=== PATIENT | male | born 1975 | race Caucasian/White ===

== ENCOUNTER 2018-06-01 15:56 | Emergency (ER) | payer SELFPAY ==
[~2018-06-01] VITALS: Ht 162.6 cm; Wt 70.4 kg
[2018-06-01 16:15] VITALS: TEMP 37; Ht 162.6 cm; Wt 70.4 kg
[2018-06-01 18:18] LABS: ALBUMIN 4.1 gm/dl (3.4-5.0); CALCIUM 8.9 mg/dl (8.5-10.1); CREATININE 0.89 mg/dl (0.60-1.40); POTASSIUM 4.4 mmol/L (3.5-5.1); TOTAL PROTEIN 7.8 gm/dl (6.4-8.2)
[2018-06-01 18:22] LABS: BASO % 0.3 %; BASO ABS # 0.03 K/uL (0-0.2); EOS % 0.2 %; EOS ABS # 0.02 K/uL (0-0.5); HEMOGLOBIN 14.3 g/dL (14.0-18.0); IG# 0.01 K/uL (0.00-0.02); LYMPH % 26.6 %; MEAN CELL VOLUME 91.3 fL (80-100); MEAN CORPUSCULAR HEMOGLOBIN 31.1 pg (25-34); MONO % 9.8 %; MONO ABS # 0.85 K/uL (0.11-0.59); NEUT ABS # 5.45 K/uL (1.4-6.5); PLATELET COUNT 254 K/uL (130-400); RED CELL DISTRIBUTION WIDTH CV 13.1 % (11.5-14.5); RED CELL DISTRIBUTION WIDTH SD 43.5 fL (36.4-46.3); WHITE BLOOD COUNT 8.66 K/uL (4.8-10.8)
--- NOTE | 2018-06-01 18:43 | DIAGNOSTIC IMAGING REPORT ---
CERVICAL SPINE 5 VIEWS HISTORY: L arm numbness, radiculopathy COMPARISON: None. FINDINGS: The cervical spine is visualized from C1 through C7. There is no fracture. No subluxation. Disc spaces are preserved. Prevertebral soft tissues and the atlantodens interval are intact. Straightening of the cervical spine. IMPRESSION: No fracture or subluxation within the cervical spine. No significant degenerative disc disease. Straightening of the cervical spine. Electronically signed by: Julio Okeefe M.D. 06/01/2018 6:42 PM Dictated Date/Time: 06/01/2018 6:39 PM
--- NOTE | 2018-06-01 18:47 | DIAGNOSTIC IMAGING REPORT ---
CHEST 2 VIEWS ROUTINE HISTORY: L CHEST PAIN, pleuritic pain COMPARISON: None. FINDINGS: The lungs are clear. Cardiac silhouette is normal in size. No pleural effusions. No pneumothorax. Old, healed left lateral ninth rib fracture. No acute rib fractures. IMPRESSION: No acute process. Electronically signed by: Julio Okeefe M.D. 06/01/2018 6:46 PM Dictated Date/Time: 06/01/2018 6:43 PM
[2018-06-01 19:11] VITALS: BP 137/99; PULSE 60; O2SAT 99
--- NOTE | 2018-06-01 21:18 | EMERGENCY ROOM VISIT NOTE ---
History Report prepared by Fabio: Rebekah Faith Under the Supervision of: Dr. Janeth Pham M.D. First contact with patient: 17:14 Chief Complaint: BACK PAIN Stated Complaint: LOWER BACK PAIN;RIB NUMBNESS History of Present Illness The patient is a 42 year old male who presents to the Emergency Room with complaints of worsening lower back pain starting a few months ago. 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 He states that he has left rib pain, left shoulder pain, left side of neck, and has numbness from his left elbow to his hand. He states that his legs intermittently go numb. He reports that he came to the ED today because the numbness in his left arm made him nervous. He states that he assumed that the pain would go away on its own, but it hasn't. He notes that he has tried taking Aleve with no relief. He notes that it seems to be worse when he is sedentary. The patient complains of joint pain and pain with deep breathing. The patient denies fever. He denies injuring his neck. Source of History: patient Onset: a few months ago Position: back (lower) Timing: worsening Modifying Factors (Worsening): rest Associated Symptoms: + neck pain, + numbness, No fevers Note: The patient complains of left rib pain, left shoulder pain, joint pain, and pain with deep breathing. Review of Systems See HPI for pertinent positives & negatives. A total of 10 systems reviewed and were otherwise negative. Past Medical & Surgical No significant past medical history. Family History FHx: suicide Social History Smoking Status: Current Every Day Smoker Alcohol Use: occasionally Marital Status: single Housing Status: lives alone Occupation Status: employed Allergies Coded Allergies: No Known Allergies (Verified , 06/01/18) Physical Exam Vital Signs Date Time Temp Pulse Resp B/P (MAP) Pulse Ox O2 Delivery O2 Flow Rate FiO2 06/01/18 19:11 60 18 137/99 99 06/01/18 18:41 54 06/01/18 18:35 56 16 156/95 98 Room Air 06/01/18 16:15 37.0 66 18 166/90 100 Room Air Physical Exam Vital signs reviewed. General: Well-appearing, in no significant distress. Sitting up at the bedside , declining to change into the gown. HEENT: No scleral icterus, PERRLA, neck supple. Atraumatic. Mild tenderness to palpation over the proximal cervical spine. Cardiovascular: Regular rate and rhythm, no extra sounds. Pulmonary: Clear to auscultation bilaterally, normal work of breathing. Abdomen: Soft, nontender, nondistended, positive bowel sounds. Musculoskeletal: Atraumatic, no peripheral edema. Tenderness to palpation over the left latissimus. Pain with deep inspiration to left chest wall. Discomfort to the left shoulder with ROM. Pain with pronation, extension and downward pressure of left shoulder. Mild tenderness to palpation over the proximal cervical spine. Neurologic: Patient awake alert and oriented x 3, full strength in all 4 extremities. Skin: Warm, dry, no rash Medical Decision & Procedures ER Provider Diagnostic Interpretation: Radiology results as stated below per my review and radiologist interpretation: CHEST 2 VIEWS ROUTINE HISTORY: L CHEST PAIN, pleuritic pain COMPARISON: None. FINDINGS: The lungs are clear. Cardiac silhouette is normal in size. No pleural effusions. No pneumothorax. Old, healed left lateral ninth rib fracture. No acute rib fractures. IMPRESSION: No acute process. Electronically signed by: Julio Okeefe M.D. 06/01/2018 6:46 PM Dictated Date/Time: 06/01/2018 6:43 PM CERVICAL SPINE 5 VIEWS HISTORY: L arm numbness, radiculopathy COMPARISON: None. FINDINGS: The cervical spine is visualized from C1 through C7. There is no fracture. No subluxation. Disc spaces are preserved. Prevertebral soft tissues and the atlantodens interval are intact. Straightening of the cervical spine. IMPRESSION: No fracture or subluxation within the cervical spine. No significant degenerative disc disease. Straightening of the cervical spine. Electronically signed by: Julio Okeefe M.D. 06/01/2018 6:42 PM Dictated Date/Time: 06/01/2018 6:39 PM Laboratory Results 06/01/18 17:45 Red Blood Count 4.60, Mean Corpuscular Volume 91.3, Mean Corpuscular Hemoglobin 31.1, Mean Corpuscular Hemoglobin Concent 34.0, Mean Platelet Volume 10.0, Neutrophils (%) (Auto) 63.0, Lymphocytes (%) (Auto) 26.6, Monocytes (%) (Auto) 9.8, Eosinophils (%) (Auto) 0.2, Basophils (%) (Auto) 0.3, Neutrophils # (Auto) 5.45, Lymphocytes # (Auto) 2.30, Monocytes # (Auto) 0.85, Eosinophils # (Auto) 0.02, Basophils # (Auto) 0.03 06/01/18 17:45 Test 06/01/18 17:45 White Blood Count 8.66 K/uL (4.8-10.8) Red Blood Count 4.60 M/uL (4.7-6.1) Hemoglobin 14.3 g/dL (14.0-18.0) Hematocrit 42.0 % (42-52) Mean Corpuscular Volume 91.3 fL (80-100) Mean Corpuscular Hemoglobin 31.1 pg (25-34) Mean Corpuscular Hemoglobin Concent 34.0 g/dl (32-36) Platelet Count 254 K/uL (130-400) Mean Platelet Volume 10.0 fL (7.4-10.4) Neutrophils (%) (Auto) 63.0 % Lymphocytes (%) (Auto) 26.6 % Monocytes (%) (Auto) 9.8 % Eosinophils (%) (Auto) 0.2 % Basophils (%) (Auto) 0.3 % Neutrophils # (Auto) 5.45 K/uL (1.4-6.5) Lymphocytes # (Auto) 2.30 K/uL (1.2-3.4) Monocytes # (Auto) 0.85 K/uL (0.11-0.59) Eosinophils # (Auto) 0.02 K/uL (0-0.5) Basophils # (Auto) 0.03 K/uL (0-0.2) RDW Standard Deviation 43.5 fL (36.4-46.3) RDW Coefficient of Variation 13.1 % (11.5-14.5) Immature Granulocyte % (Auto) 0.1 % Immature Granulocyte # (Auto) 0.01 K/uL (0.00-0.02) D-Dimer 230 ug/L FEU (0-500) Urine Color YELLOW Urine Appearance CLEAR (CLEAR) Urine pH 6.5 (4.5-7.5) Urine Specific [place] 1.012 (1.000-1.030) Urine Protein NEG (NEG) Urine Glucose (UA) NEG (NEG) Urine Ketones NEG (NEG) Urine Occult Blood NEG (NEG) Urine Nitrite NEG (NEG) Urine Bilirubin NEG (NEG) Urine Urobilinogen NEG (NEG) Urine Leukocyte Esterase NEG (NEG) Anion Gap 7.0 mmol/L (3-11) Est Creatinine Clear Calc Drug Dose 89.7 ml/min Estimated GFR () 121.4 Estimated GFR (Non- 104.7 BUN/Creatinine Ratio 9.8 (10-20) Calcium Level 8.9 mg/dl (8.5-10.1) Total Bilirubin 0.5 mg/dl (0.2-1) Direct Bilirubin 0.2 mg/dl (0-0.2) Aspartate Amino Transf (AST/SGOT) 27 U/L (15-37) Alanine Aminotransferase (ALT/SGPT) 40 U/L (12-78) Alkaline Phosphatase 17 U/L (45-117) Total Protein 7.8 gm/dl (6.4-8.2) Albumin 4.1 gm/dl (3.4-5.0) Urine Opiates Screen NEG (NEG) Urine Methadone, Qualitative NEG (NEG) Urine Barbiturates NEG (NEG) Urine Phencyclidine (PCP) Level NEG (NEG) Ur Amphetamine/Methamphetamine NEG (NEG) MDMA (Ecstasy) Screen NEG (NEG) Urine Benzodiazepines Screen NEG (NEG) Urine Cocaine Metabolite NEG (NEG) Urine Marijuana (THC) POS (NEG) Lyme Disease IgG Antibody NEG (NEG) Lyme Disease IgM Antibody NEG (NEG) Laboratory results per my review. ED Course 1727: Past medical records reviewed. The patient was evaluated in room C3. A complete history and physical examination was performed. 1906: Upon reevaluation, the patient appeared to have improvement of his symptoms. I discussed findings with him. He verbalized agreement of the treatment plan. The patient was discharged home. Medical Decision Differential diagnosis: Etiologies such as fracture, dislocation, neurovascular compromise, compartment syndrome, soft tissue injury, as well as others were entertained. This pt was evaluated and appeared to be in no distress. Lab work was obtained and reveals no elevation of WBC, neg d-dimer, neg lyme titer. XR cervical spine and chest were performed. There is no acute abnl, no significant degenerative change of cervical spine. CXR is clear. Pt was advised of the findings. I suspect the left arm symptoms are radicular in nature. The arthralgias and shoulder discomfort are likely MSK in nature. Pt's employment is physical in nature and the heavy lifting is likely the cause of the pain. The symptoms have been ongoing for many months-years. He was referred to a PCP as soon as possible as well as orthopedics regarding the MSK pain. He will return to the ED for worsening of symptoms or any medical concerns. [place] Drug Monitoring Program Search Results: no issues identified Medication Reconcilliation Current Medication List: was personally reviewed by me Blood Pressure Screening Patient's blood pressure: Elevated blood pressure Blood pressure disposition: Elevated BP felt to be situational Impression Primary Impression: Radicular pain in left arm Additional Impressions: Arthralgia of back Shoulder pain, left Strain of latissimus dorsi muscle Scribe Attestation The scribe's documentation has been prepared under my direction and personally reviewed by me in its entirety. I confirm that the note above accurately reflects all work, treatment, procedures, and medical decision making performed by me. Departure Information Dispostion Home / Self-Care Referrals No Doctor, Assigned (PCP) Forms HOME CARE DOCUMENTATION FORM, IMPORTANT VISIT INFORMATION Patient Instructions My [facility] Additional Instructions Diagnosis: Left arm radiculopathy, arthralgias Ibuprofen 600 mg every 6 hours as needed for pain with food. Avoid heavy lifting or trauma if possible. Your Lyme titer is pending, you will be contacted if this is positive. Follow-up with orthopedics, Dr. Finney for reevaluation and further management. Return to the emergency department for worsening of symptoms or any medical concerns. Problem Qualifiers
== END 2018-06-01 19:06 | disposition home or self-care (01) ==
LOC: C.EDB 15:57 → C.EDC 19:06
DX: M54.10 Radiculopathy, site unspecified (principal); M54.5 Low back pain; M25.512 Pain in left shoulder; S46.812A Strain of other muscles, fascia and tendons at shoulder and upper arm level, left arm, initial encounter; X58.XXXA Exposure to other specified factors, initial encounter; F17.200 Nicotine dependence, unspecified, uncomplicated

== ENCOUNTER 2018-06-16 13:13 | Emergency (ER) | payer SELFPAY ==
[~2018-06-16] VITALS: Ht 162.6 cm; Wt 71.7 kg
[2018-06-16 13:21] VITALS: BP 146/98; PULSE 83; TEMP 37.1; O2SAT 98; Ht 162.6 cm; Wt 71.7 kg
[2018-06-16] MEDS ORDERED: AMOX875T PO (13:39)
--- NOTE | 2018-06-16 13:39 | EMERGENCY ROOM VISIT NOTE ---
History Report prepared by Fabio: Rebekah Faith Under the Supervision of: Dr. Liam Olea M.D. First contact with patient: 13:29 Chief Complaint: FACIAL PAIN/INJURY Stated Complaint: LEFT SIDE OF FACE SWELLED UP History of Present Illness The patient is a 42 year old male who presents to the Emergency Room with complaints of worsening left sided facial pain starting last night. The patient states that states that the pain is located over his left maxillary sinus. He notes that is is swelling with the pain. He states that he took two Aleve last night with no relief. He currently rates his pain as moderate severity. The patient complains of being able to sleep due to the pain. He denies fevers, sneezing, or neck stiffness. Source of History: patient Onset: last night Position: other (left face) Symptom Intensity: 1010 Quality: other (swelling) Timing: worsening Associated Symptoms: + headache Note: The patient complains of not being able to sleep. Review of Systems See HPI for pertinent positives and negatives. A total of ten systems were reviewed and were otherwise negative. Past Medical & Surgical No known medical problems. Family History FHx: suicide Social History Smoking Status: Current Every Day Smoker Alcohol Use: occasionally Marital Status: single Housing Status: lives alone Occupation Status: employed Current/Historical Medications Scheduled Amoxicillin & Pot Clavulanate (Augmentin 875-125 mg), 875 MG PO BID Allergies Coded Allergies: No Known Allergies (Verified , 06/01/18) Physical Exam Vital Signs Date Time Temp Pulse Resp B/P (MAP) Pulse Ox O2 Delivery O2 Flow Rate FiO2 06/16/18 13:21 37.1 83 18 146/98 98 Room Air Physical Exam Physical Exam GENERAL: He is oriented to person, place, and time. He appears well-developed and well-nourished. He does not appear distressed. HENT: Exam performed. Head: Normocephalic and atraumatic. No facial swelling. Right Ear: External ear normal. No mastoid tenderness. Left Ear: External ear normal. No mastoid tenderness. Mouth/Throat: The oropharynx is clear and moist. Poor dentition. Multiple cracked teeth. Multiple dental caries. Multiple missing teeth. Pain to percussion of his left upper molar that reproduced the chief complaint. Pain on palpation of the left maxillary sinus reproducing the chief complaint. No trismus in the jaw. No dental abscesses or uvula swelling. No oropharyngeal exudate or tonsillar abscesses. EYES: Conjunctivae and EOM are normal. Pupils are equal, round, and reactive to light. Right eye exhibits no discharge. Left eye exhibits no discharge. No scleral icterus. NECK: Normal range of motion. Neck supple. No JVD present. No spinous process tenderness present. No carotid bruit present. No rigidity. No tracheal deviation and normal range of motion present. No Brudzinski's sign and no Kernig 's sign noted. CV: Normal rate, regular rhythm, normal heart sounds and intact distal pulses. There is no peripheral edema. Palpable radial pulses bue. PULM/CHEST: Effort normal and breath sounds normal. No respiratory distress. No stridor. He has no wheezes. He has no rales. Chest Wall: He exhibits no tenderness. ABD: The abdomen is soft. Bowel sounds are normal. He has no distension. No mass is present. There is no tenderness. There is no rebound, no guarding, no Evans's sign and no tenderness at McBurney's point. Rovsig negative. MUSC/SKEL: Normal range of motion. There is no peripheral edema, tenderness or deformity. LYMPH: No cervical adenopathy. NEURO: He is alert and oriented to person, place, and time. He has normal strength. No cranial nerve deficit or sensory deficit. Coordination and gait normal. GCS eye subscore is 4. GCS verbal subscore is 5. GCS motor subscore is 6. Cerebellar tests wnl. SKIN: Skin is warm and dry. He is not diaphoretic. PSYCH: He has a normal mood and affect. Behavior is normal. Judgment and thought content normal. Medical Decision & Procedures ED Course 1330: The patient was evaluated in room B8. A complete history and physical exam was performed. Patient has no signs or symptoms consistent with cavernous sinus thrombosis, orbital cellulitis, or acute surgical emergency. No fever, extraocular movements are intact, no significant facial swelling. Patient will be discharged with antibiotics. It is thought that the poor dentition could be a source of the infection that the patient should follow-up with dentistry. DISCHARGE - Plan of care discussed with patient and questions answered. The patient was given both verbal and printed discharge instructions. The patient verbalized understanding and ability to comply. The patient is to seek outpatient follow up as noted in the discharge instructions. The patient verbalized understanding and ability to comply. The patient is discharged in stable condition. The patient was instructed to return for worsening symptoms. Medical Decision The patient was evaluated in room B8. A complete history and physical exam was performed. Patient has no signs or symptoms consistent with cavernous sinus thrombosis, orbital cellulitis, or acute surgical emergency. No fever, extraocular movements are intact, no significant facial swelling. Patient will be discharged with antibiotics. It is thought that the poor dentition could be a source of the infection that the patient should follow-up with dentistry. DISCHARGE - Plan of care discussed with patient and questions answered. The patient was given both verbal and printed discharge instructions. The patient verbalized understanding and ability to comply. The patient is to seek outpatient follow up as noted in the discharge instructions. The patient verbalized understanding and ability to comply. The patient is discharged in stable condition. The patient was instructed to return for worsening symptoms. Medication Reconcilliation Current Medication List: was personally reviewed by me Blood Pressure Screening Patient's blood pressure: Elevated blood pressure Blood pressure disposition: Elevated BP felt to be situational Impression Primary Impression: Sinus infection Scribe Attestation The scribe's documentation has been prepared under my direction and personally reviewed by me in its entirety. I confirm that the note above accurately reflects all work, treatment, procedures, and medical decision making performed by me. The chart was completed utilizing [employer] Speech voice recognition software. Grammatical errors, random word insertions, pronoun errors, and incomplete sentences are an occasional consequence of this system due to software limitations, ambient noise, and hardware issues. Any formal questions or concerns about the content, text, or information contained within the body of this dictation should be directly addressed to the physician for clarification. Departure Information Dispostion Home / Self-Care Prescriptions Amoxicillin & Pot Clavulanate (Augmentin 875-125 mg) 1 Tab Tab 875 MG PO BID for 10 Days, #20 TAB Prov: Liam Olea M.D. 06/16/18 Referrals No Doctor, Assigned (PCP) Forms HOME CARE DOCUMENTATION FORM, IMPORTANT VISIT INFORMATION Patient Instructions [facility] Problem Qualifiers Primary Impression: Sinus infection Sinusitis location: maxillary Chronicity: acute Recurrence: not specified as recurrent Qualified Codes: J01.00 - Acute maxillary sinusitis, unspecified
== END 2018-06-16 13:40 | disposition home or self-care (01) ==
LOC: C.EDB 13:14
DX: J01.00 Acute maxillary sinusitis, unspecified (principal); K08.89 Other specified disorders of teeth and supporting structures; K02.9 Dental caries, unspecified; F17.200 Nicotine dependence, unspecified, uncomplicated

== ENCOUNTER 2025-05-04 13:21 | Inpatient (IN) ==
[2025-05-04] MEDS: ONDANSETRON INJ 2 MG/ML 2 ML VIAL IV STA (14:06)
[2025-05-04] MEDS: MoRPHine SULFATE 2 MG/ML CARP IV STA ×2 (14:06→15:12)
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
[2025-05-04 14:18] LABS: Hematocrit (blood only) 41.0 % (42.0-52.0); Hemoglobin 13.6 g/dl (14.0-18.0); Immature Granulocytes # (auto) 0.13 K/uL (0.01-0.20); Immature Granulocytes % (auto) 0.7 %; Mean Corpuscular Hemoglobin 30.5 pg (25.0-34.0); Mean Corpuscular Volume 91.9 fL (80.0-100.0); Platelet Count 239 K/uL (130-400); RDW Standard Deviation 45.1 fL (36.4-46.3); Red Blood Count 4.46 M/uL (4.70-6.10); White Blood Count 17.47 K/ul (4.8-10.8)
[2025-05-04 14:36] LABS: Alanine Aminotransferase 52.0 U/L (7-52); Albumin Globulin Ratio 1.1 (0.9-2); Alkaline Phosphatase 19.0 U/L (34-104); Anion Gap 8.0 (3-11); Bilirubin,Total 0.4 mg/dl (0.2-1.0); Blood Urea Nitrogen 13.0 mg/dl (6-23); Calcium 9.7 mg/dl (8.6-10.3); Carbon Dioxide 27.0 mmol/L (21-32); Chloride 103.0 mmol/L (98-107); Creatinine Clr Calc Pharmacy 62.0 ml/min; Globulin 3.5 gm/dl (2.5-4.0); Glucose 155.0 mg/dl (70-99(Fasting)); Potassium 3.9 mmol/L (3.5-5.1); Sodium 138.0 mmol/L (136-145); Total Protein 7.5 gm/dl (6.0-8.3)
[2025-05-04] MEDS: LIDOCAINE 5% 1 PATCH TD STA (15:12)
--- NOTE | 2025-05-04 15:18 | Magnetic Resonance Report ---
MR lumbar spine wo con CLINICAL HISTORY: Back pain, urine incont, R leg numbness. COMPARISON: 02/12/2022 MRI and x-ray of 05/02/2025 TECHNIQUE: Multiplanar, multi sequence MRI of the lumbar spine was performed without intravenous cont rast. FINDINGS: There is motion artifact. Conus medullaris terminates normally at L1. No fracture or sublux ation seen at the lumbar spine. No epidural mass or hematoma seen. L1-2: No significant disc bulge or central canal or neural foraminal narrowing. L2-3: No significant disc bulge or central canal or neural foraminal narrowing. L3-4: There is a minimal disc bulge without significant central canal or neuroforaminal narrowing. L4-5: There is a mild broad-based disc bulge with mild ligamentum flavum and facet hypertrophy. No si gnificant central canal or neuroforaminal narrowing. L5-S1: No significant disc bulge. No significant central canal narrowing. No significant neural shayne inal narrowing. IMPRESSION: 1. No fracture seen. 2. Lumbar degenerative changes as described. ACT 112: Negative or not required by law. The above report was generated using voice recognition software. It may contain grammatical, syntax o r spelling errors. Electronically signed by: Conner Love M.D. 05/04/2025 3:16 PM
[2025-05-04] MEDS: KETOROLAC TROMETHAMINE 15 MG/ML VIAL IV ONE (16:10)
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
[2025-05-04] MEDS ORDERED: ONDANSETRON INJ 2 MG/ML 2 ML VIAL IV PRN (18:04)
[2025-05-04] MEDS ORDERED: DEXAMETHASONE SOD INJ 4 MG/ML VIAL IV SCH (18:04)
[2025-05-04] MEDS: dexAMETHasone 4 MG in SYRINGE 0 ML IV SCH (19:31)
[2025-05-04] MEDS: REMOVE LIDODERM PATCH SCH (20:23)
[2025-05-04] MEDS: ACETAMINOPHEN 500 MG TAB PO SCH (20:23)
[2025-05-04] MEDS: DOCUSATE SODIUM 100 MG CAP PO SCH (20:23)
[2025-05-04 20:41] LABS: Appearance Urine Clear (Clear); Glucose Urine UA Negative (Negative)
[2025-05-04] MEDS: MoRPHine SULFATE 4 MG/ML 1 ML CARP\\VIAL IV PRN (21:23)
[2025-05-05] MEDS: MELATONIN 3 MG TAB PO PRN (00:08)
[2025-05-05 07:16] LABS: Hematocrit (blood only) 39.6 % (42.0-52.0); Hemoglobin 13.0 g/dl (14.0-18.0); Immature Granulocytes # (auto) 0.10 K/uL (0.01-0.20); Immature Granulocytes % (auto) 0.7 %; Mean Corpuscular Hemoglobin 30.4 pg (25.0-34.0); Mean Corpuscular Volume 92.7 fL (80.0-100.0); Platelet Count 224 K/uL (130-400); RDW Standard Deviation 45.2 fL (36.4-46.3); Red Blood Count 4.27 M/uL (4.70-6.10); White Blood Count 14.67 K/ul (4.8-10.8)
[2025-05-05 07:40] LABS: Alanine Aminotransferase 46.0 U/L (7-52); Albumin Globulin Ratio 1.4 (0.9-2); Alkaline Phosphatase 16.0 U/L (34-104); Anion Gap 7.0 (3-11); Bilirubin,Total 0.5 mg/dl (0.2-1.0); Blood Urea Nitrogen 15.0 mg/dl (6-23); Calcium 8.9 mg/dl (8.6-10.3); Carbon Dioxide 28.0 mmol/L (21-32); Chloride 103.0 mmol/L (98-107); Creatinine Clr Calc Pharmacy 83.7 ml/min; Globulin 2.9 gm/dl (2.5-4.0); Glucose 127.0 mg/dl (70-99(Fasting)); Magnesium 1.9 mg/dl (1.7-2.4); Potassium 4.1 mmol/L (3.5-5.1); Sodium 138.0 mmol/L (136-145); Total Protein 6.9 gm/dl (6.0-8.3)
[2025-05-05 08:33] LABS: Hemoglobin A1C 5.5 % (4.5-5.6)
--- NOTE | 2025-05-05 08:44 | Consultation ---
Date of Consultation May 05, 2025 Assessment & Plan (1) Lumbar radiculopathy: Dr. Hudson will review imaging tomorrow. There are no acute surgical indications. There is no evidence on imaging to suggest cauda equina syndrome. Would recommend consultation with pain management team to discuss pain control as well as consideration of steroid injection. Would recommend physical therapy. History of Present Illness Attending Physician: Tyler Henning MD History of Present Illness Is a pleasant 49-year-old gentleman who presented to the emergency room twice this week once for 3 days ago and then yesterday with subsequent admission now. He has complaints of right lumbar pain range on the right leg including numbness in the right leg. There is no specific pattern. He is "the entire leg. Left leg is asymptomatic. No specific accident, trauma, fall. Pain medication he was taking at home was ineffective and relieving his symptoms. He notes 2 separate episodes of urinary incontinence. Denies perineum numbness. Denies any bowel dysfunction. Any type of weightbearing on the right lower extremity or movement reproduces his symptoms. He states he is has similar episodes in the past which she has just managed at home. Allergies Allergy/AdvReac Type Severity Reaction Status Date / Time No Known Allergies Allergy Unknown Verified 05/02/25 16:50 Home Medications Medication Instructions Recorded Confirmed Type prednisone 20 mg tablet 20 mg PO BID 5 days #10 tabs 05/02/25 05/04/25 Rx Patient History Medical History No chronic diseases present Surgical History No significant past surgical history Social History Smoking Status: Current some day smoker Tobacco Type: Cigarettes Hx Alcohol Use: Yes Alcohol type: beer Alcohol Intake Frequency: 2-4 x/Month Hx Substance Use: Yes Preferred Language: Bulgarian Communication Ability: Effective 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 Also has pain over the right greater trochanter bursa region. He has breakaway weakness throughout the entire right lower extremity Strength is intact to left lower extremity Logrolling reproduces back pain Results & Data Vital Signs (Past 12 Hours) Vital Signs Temp Pulse Resp BP Pulse Ox O2 Del Method 05/05/25 07:49 36.4 C L 84 16 104/70 99 Room Air 05/04/25 21:24 36.7 C 51 L 18 136/82 99 Room Air Diagnostic Findings [facility], [place] [phone] Magnetic Resonance Report Patient: JUAN DAVID CHAUDHARY II Admit Date: 05/04/25 MR#: [id number] Address1: [address] [place] [address] Acct ID:[id number] Address2: Date: 1975 [facility] Zip: [place] [address] Age: 49 Location: ED Sex: M Room/Bed: Att Phy: Diagnosis: BACK PAIN Karla Phy: PCP,NO Service Date: 05/04/25 Fam Phy: Interpreting Phy: Conner Love [facility] Phy: Ordering Phy: Sage Holguin PA-C cc: ~ MR lumbar spine wo con CLINICAL HISTORY: Back pain, urine incont, R leg numbness. COMPARISON: 02/12/2022 MRI and x-ray of 05/02/2025 TECHNIQUE: Multiplanar, multi sequence MRI of the lumbar spine was performed without intravenous contrast. FINDINGS: There is motion artifact. Conus medullaris terminates normally at L1. No fracture or subluxation seen at the lumbar spine. No epidural mass or hematoma seen. L1-2: No significant disc bulge or central canal or neural foraminal narrowing. L2-3: No significant disc bulge or central canal or neural foraminal narrowing. L3-4: There is a minimal disc bulge without significant central canal or neuroforaminal narrowing. L4-5: There is a mild broad-based disc bulge with mild ligamentum flavum and facet hypertrophy. No significant central canal or neuroforaminal narrowing. L5-S1: No significant disc bulge. No significant central canal narrowing. No significant neural foraminal narrowing. IMPRESSION: 1. No fracture seen. 2. Lumbar degenerative changes as described. ACT 112: Negative or not required by law. The above report was generated using voice recognition software. It may contain grammatical, syntax or spelling errors. Electronically signed by: Conner Love M.D. 05/04/2025 3:16 PM Dictated: 05/04/25 1506 Transcribed: 05/04/25 1506 [place], [place] [phone] XRay Report Patient: JUAN DAVID CHAUDHARY II Admit Date: 05/02/25 MR#: [id number] Address1: [address] [facility] Acct ID:[id number] Address2: Date: 1975 [facility] [place] [facility] [address] Age: 49 Location: ED Sex: M Room/Bed: Att Phy: Diagnosis: NECK AND LOWER BACK, LEG NUMB, PAIN Karla Phy: PCP,NO Service Date: 05/02/25 Fam Phy: Interpreting Phy: Iraj Martinez MDAdmit Phy: Ordering Phy: Shruthi Street PA-C cc: ~ Clinical history: Pain Technique: 3 views of the lumbar spine are submitted for review Findings: The lumbar vertebrae are in normal alignment with no listhesis seen. There are mild T10, T11, and T12 compression fractures, likely old. No definite lumbar spine fracture is identified. There are degenerative spurs throughout the lower thoracic and lumbar spine. No focal osseous lesion is seen. The bowel gas pattern appears unremarkable. Impression: 1. Mild compression fractures of T10, T11, and T12, likely old 2. Multilevel degenerative disc disease Electronically signed by Iraj Martinez 05-02-2025 6:06 PM Dictated: 05/02/25 3521 Transcribed:
[2025-05-05] MEDS: POLYETHYLENE (MIRALAX) 17 GM PACK PO SCH (09:25)
--- NOTE | 2025-05-05 14:59 | Hospitalist Progress Note ---
Date of Service May 05, 2025 Assessment & Plan (1) Lumbar back pain: (2) Sciatica of right side: Plan #Acute on Chronic low back pain with R sided radiculopathy #Urinary Incontinence - reported #Ambulatory dysfunction 2/2 above admitted to med/surg L spine MRI with L DDD, L4-5 mild disc buldge Pt reports crushing accident 3 years ago, known hx of T10-12 comp fx Pt pain uncontrolled and unable to tolerate further MRI until better controlled consult Dr. Hudson with orthospine for further imaging recs and eval scheduled APAP, lidocaine patch prn Oxy IR, Prn IV morphine IV dexamethasone 4mg q8h, Scheduled Valium 2mg TID, Heat bowel regimen ordered DVT ppx: SCDS for now FULL CODE PCP: none, pt wishes to establish with provider in mineral Admission and Anticipated Discharge Date Admission Date: May 04, 2025 Subjective Pt seen in follow up of back pain and RLE numbness Lying in bed in NAD, reports pain with any movement that involves right side back, RLE. Reports he had pain issues for some time/ months and was seen by pain physician before. No fever, chills, chest pain, shortness of breath, no abd.pain, n/v Review of Systems Review of Systems: All systems reviewed & are unremarkable except as noted in Subjective Physical Exam Physical Exam: Constitutional: WD/WN, M in NAD Head: Normocephalic, Atraumatic Eyes: PERRL, EOMI ENMT: external ear and nose normal Neck: normal visual inspection Respiratory: normal respiratory effort, lungs clear to auscultation Cardiovascular: RRR, no murmur, no edema Chest: normal inspection of chest Abdomen: normal bowel sounds, soft,nontender Musculoskeletal:+pain to palp R paraspinal musculature R lateral thigh with decreased sensation, +SLR, no foot drop but weakness to plantar/dorsiflexion of R foot Skin: no rashes, warm and dry normal turgor Neurologic: PERRL, EOMI, no face palsy, speech fluent, moves all extremities Psychiatric: A+Ox3, euthymic affect Results & Data Results & Data Vital Signs (Past 12 Hours) Vital Signs Temp Pulse Resp BP Pulse Ox O2 Del Method 05/05/25 07:49 36.4 C L 84 16 104/70 99 Room Air Laboratory Results 05/05/25 05/04/25 Range/Units 06:49 Unknown WBC 14.67 H (4.8-10.8) K/ul RBC 4.27 L (4.70-6.10) M/uL Hgb 13.0 L (14.0-18.0) g/dl Hct 39.6 L (42.0-52.0) % MCV 92.7 (80.0-100.0) fL MCH 30.4 (25.0-34.0) pg MCHC 32.8 (32.0-36.0) g/dL RDW Std Deviation 45.2 (36.4-46.3) fL RDW Coeff of Zeus 13.3 (11.5-14.5) % Plt Count 224 (130-400) K/uL MPV 10.9 (9.4-12.4) fL Immature Gran % (Auto) 0.7 % Neut % (Auto) 88.6 % Lymph % (Auto) 7.2 % [place] % (Auto) 3.4 % Eos % (Auto) 0.0 % Baso % (Auto) 0.1 % Neut # (Auto) 13.01 H (1.40-6.50) K/uL Lymph # (Auto) 1.05 L (1.20-3.40) K/uL [place] # (Auto) 0.50 (0.11-0.59) K/uL Eos # (Auto) 0.00 (0.00-0.50) K/uL Baso # (Auto) 0.01 (0.00-0.20) K/uL Immature Gran # (Auto) 0.10 (0.01-0.20) K/uL Sodium 138 (136-145) mmol/L Potassium 4.1 (3.5-5.1) mmol/L Chloride 103 (98-107) mmol/L Carbon Dioxide 28 (21-32) mmol/L Anion Gap 7 (3-11) BUN 15 (6-23) mg/dl Creatinine 0.85 (0.6-1.4) mg/dl Est Cr Clr Drug Dosing 83.7 ml/min eGFR 105.86 BUN/Creatinine Ratio 17.6 (10-20) Glucose 127 H (70-99(Fasting)) mg/dl Estimat Average Glucose 111 mg/dl Hemoglobin A1c 5.5 (4.5-5.6) % Calcium 8.9 (8.6-10.3) mg/dl Magnesium 1.9 (1.7-2.4) mg/dl Total Bilirubin 0.5 (0.2-1.0) mg/dl AST 32 (13-39) U/L ALT 46 (7-52) U/L Alkaline Phosphatase 16 L (34-104) U/L Total Protein 6.9 (6.0-8.3) gm/dl Albumin 4.0 (3.4-5.0) gm/dl Globulin 2.9 (2.5-4.0) gm/dl Albumin/Globulin Ratio 1.4 (0.9-2) Urine Color Yellow Urine Appearance Clear (Clear) Urine pH 7.0 (4.5-7.5) Ur Specific Anthony 1.011 (1.000-1.030) Urine Protein Negative (Negative) Urine Glucose (UA) Negative (Negative) Urine Ketones Negative (Negative) Urine Blood Negative (Negative) Urine Nitrite Negative (Negative) Urine Bilirubin Negative (Negative) Urine Urobilinogen Negative (Negative) Ur Leukocyte Esterase Negative (Negative) Urine Comment Medications Administered Home Medications prednisone 20 mg tablet 20 mg PO BID 5 days #10 tabs 05/02/25 [Rx Confirmed 05/04/25] Active Medications Acetaminophen (Acetaminophen 500 Mg Tab) 1,000 mg PO TID [facility] Stop: 06/03/25 20:59 Last Admin: 05/05/25 14:49 Dose: 1,000 mg Diazepam (Diazepam 2 Mg Tablet) 2 mg PO TID JON Stop: 06/03/25 20:59 Last Admin: 05/05/25 14:49 Dose: 2 mg Docusate Sodium (Docusate Sodium 100 Mg Cap) 100 mg PO BID JON Stop: 06/03/25 20:59 Last Admin: 05/05/25 09:26 Dose: 100 mg Dexamethasone 4 mg/ Syringe 1 mls @ 1 mls/min IV Q8H [facility] Stop: 06/03/25 18:14 Last Admin: 05/05/25 09:27 Dose: 1 mls/min Melatonin (Melatonin 3 Mg Tab) 3 mg PO HS PRN PRN Reason: Insomnia Stop: 06/03/25 18:03 Last Admin: 05/05/25 00:08 Dose: 3 mg Miscellaneous (Remove Lidoderm Patch) 1 each N/A DAILY@2100 [facility] Stop: 06/03/25 20:59 Last Admin: 05/04/25 20:23 Dose: 1 each Morphine Sulfate (Morphine Sulfate 4 Mg/Ml 1 Ml Carp\Vial) 4 mg IV Q4H PRN PRN Reason: Severe Pain (Scale 7, 8, 9,10) Stop: 05/18/25 18:03 Last Admin: 05/04/25 21:23 Dose: 4 mg Ondansetron HCl (Ondansetron Inj 2 Mg/Ml 2 Ml Vial) 4 mg IV Q6H PRN PRN Reason: Nausea Stop: 06/03/25 18:03 Oxycodone HCl (Oxycodone Hcl Ir 5 Mg Tab (Immediate Release)) 5 - 10 mg PO Q4H PRN PRN Reason: Mod-Sev Pain (Scale 4-10) Stop: 05/18/25 18:03 Last Admin: 05/05/25 14:11 Dose: 10 mg Polyethylene Glycol (Polyethylene (Miralax) 17 Gm Pack) 17 gm PO DAILY [facility] Stop: 06/04/25 08:59 Last Admin: 05/05/25 09:25 Dose: Not Given
--- NOTE | 2025-05-05 18:18 | Pain Management Consultation ---
Date of Consultation May 05, 2025 Assessment & Plan (1) Lumbar radiculopathy: (2) Myofascial pain syndrome of lumbar spine: Plan 1. Recommend discontinuing morphine sulfate and starting Dilaudid 1 mg IV every 6 hours as needed for pain. Will continue use oxycodone 5 to 10 mg every 4 hours for breakthrough pain. 2. Will start gabapentin 300 mg at bedtime tonight. Will also start duloxetine 30 mg every morning with first dose in the morning. If patient tolerates both these medications, can prescribe on discharge 3. Recommend obtaining records from Dr. [facility] as well as from [place] where patient had procedures performed 4. Implement increased bowel regimen with Colace 100 mg p.o. twice daily, senna 8.6 mg p.o. every morning, and polyethylene glycol every morning as needed. Titrate to bowel movement 5. Will implement lidocaine patch to be used 12 hours on 12 hours off and most painful area of lumbosacral region 6. Discontinue scheduled diazepam as gabapentin can cause increased drowsiness. No history of benzodiazepine use on PDMP 7. Agree with dexamethasone while inpatient. Would discharge on prednisone or Medrol taper 8. Increase ambulation in the hallway and as tolerated 9. MRI images reviewed. No significant change from lumbar spine MRI 02/12/2022. Patient may benefit from interlaminar or transforaminal epidural steroid injection. Will control pain and discharged home and if patient is interested, can follow him in the pain clinic for consideration of future injection. Thank you for including us in the care of this patient. Case discussed with Dr. Infante. Please see her addendum for further recommendations. History of Present Illness Attending Physician: Tyler Henning MD History of Present Illness Attending: Dr. Infante Mr. Schwab is a 49-year-old male. He was admitted for intractable right-sided lower back pain radiating right leg associated with some numbness in an L5-S1 distribution pattern as well as pain in the left leg to the mid thigh in an L3-L4 distribution pattern. Patient reports urinary incontinence which has been gradually worsening since many months. He denies bowel incontinence. He also reports having chronic cervical pain. He was admitted for management of lumbar radiculopathy, ambulatory dysfunction, and suspected cauda equina. Lumbar MRI showed no significant stenosis, no acute fractures but suggestive of degenerative changes with minimal disc bulge at L3-L4 and mild broad-based disc bulge at L4-L5. There is no significant central canal narrowing or neuroforaminal narrowing. There was evidence of ligamentum flavum and facet hypertrophy at L4-L5. 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 He reports that he was admitted for 1 week in trauma center. He reports no long bone fractures or significant lacerations but has had cervical and thoracolumbar since that time. Patient following with Worker's Comp with [facility] (Dr. Morales) until August 2024 with pain management clinic out of [facility]. He denies any history of lumbar or thoracic epidural steroid injections. He did however have multiple intercostal nerve blocks with his last procedure being performed in August 2024. Patient reports that pain worsened 2 months ago without injury. He has been having increased difficulty with ambulation around the home and has required help to go to the bathroom. He characterizes his pain as severe, constant, stabbing, sharp in the lumbosacral region. Pain interrupts his sleep and he cannot sleep on his right side. Over the last 2 to 3 weeks he has developed numbness in his right leg and foot as well as in his left anterior thigh. Pain is aggravated by bending, lifting, twisting, prolonged standing, prolonged walking. He denies any home medications and states that he has never used gabapentin, duloxetine, pregabalin, Lyrica. He has never had physical therapy, chiropractic initialization, massage. He reports that ice and heat do not help. He has been receiving morphine sulfate 4 mg IV as well as oxycodone 5 to 10 mg p.o. every 4 hours and reports 50% improvement for short period of time with return of pain every time he moves, tries to sit on the edge of the bed, tries to walk. Patient is utilizing a urinal and only has dribbling of urine. He reports he has not had a bowel movement since admission. He rates his pain 9/10 at worst and 4/10 at best. He has noted to have hypertension accompanied by bradycardia. Although patient denies previous use of opiates, gabapentin, pregabalin, PDMP review reveals the patient had oxycodone as well as pregabalin prescribed throughout the year 2023 with last prescription being July 2024 Lumbar spine MRI 05/04/2025 Lumbar spine MRI 02/12/2022 Patient reports no previous interventions with the exception of [id number] Tylenol and NSAIDs occasionally. Patient denies bowel or bladder incontinence but does have dribbling of urine. He has no unusual bleeding or bruising. He denies any history of malignancy. No other constitutional complaints at this time. Allergies Allergy/AdvReac Type Severity Reaction Status Date / Time No Known Allergies Allergy Unknown Verified 05/02/25 16:50 Home Medications Medication Instructions Recorded Confirmed Type prednisone 20 mg tablet 20 mg PO BID 5 days #10 tabs 05/02/25 05/04/25 Rx Patient History Medical History No chronic diseases present Surgical History No significant past surgical history Social History Smoking Status: Current some day smoker Tobacco Type: Cigarettes Hx Alcohol Use: Yes Alcohol type: beer Alcohol Intake Frequency: 2-4 x/Month Hx Substance Use: Yes Preferred Language: Latvian Communication Ability: Effective 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 Memory appears grossly intact, resting comfortably on examination Skin: No evidence of edema, erythema or skin breakdown. No rashes, lesions, ulcers, or induration noted. Musculoskeletal: Head is normocephalic and atraumatic, gait not evaluated as patient is unable to ambulate secondary to pain. Lumbar: Lordotic curve: Loss of lumbar Lordosis Range of motion is decreased in all planes secondary to pain Tenderness: Tender over the axial midline throughout the entire thoracic and lumbar spine Facet provocation: Positive bilaterally in the lumbosacral region Straight leg raise: Positive bilaterally Strength: Strength is diminished on the right in all planes Sensation of lower extremities: Intact bilaterally with hypersensitivity to the right great toe Deep tendon reflexes: Rated at 2/4 in bilateral patellar and Achilles tendons Myofascial spasm: Significant tenderness and unable to fully appreciate lumbar spasm or trigger points due to poor cooperation with examination from patient secondary to pain Greater trochanters: Nontender bilaterally Sacroiliac joints: Tender on the right. Negative on the left. Unable to perform Gaenslen's test, FADIR, DAJA secondary to pain. Pathologic reflexes noted: None Neuro: No focal neurological deficits appreciated. Results (Pain Clinic) Diagnostic Review MRI: reports reviewed, images reviewed and findings discussed with patient MRI Findings: Magnetic Resonance Report Patient: JUAN DAVID SCHWAB II Admit Date: 05/04/25 MR#: [id number] Address1: [address] [place] [address] Acct ID:[id number] Address2: Date: 1975 [facility] Zip: [place] [id number] Age: 49 Location: ED Sex: M Room/Bed: Att Phy: Diagnosis: BACK PAIN Karla Phy: PCP,NO Service Date: 05/04/25 [facility] Phy: Interpreting Phy: Conner Love MDAdmit Phy: Ordering Phy: Sage Holguin PA-C cc: ~ MR lumbar spine wo con CLINICAL HISTORY: Back pain, urine incont, R leg numbness. COMPARISON: 02/12/2022 MRI and x-ray of 05/02/2025 TECHNIQUE: Multiplanar, multi sequence MRI of the lumbar spine was performed without intravenous contrast. FINDINGS: There is motion artifact. Conus medullaris terminates normally at L1. No fracture or subluxation seen at the lumbar spine. No epidural mass or hematoma seen. L1-2: No significant disc bulge or central canal or neural foraminal narrowing. L2-3: No significant disc bulge or central canal or neural foraminal narrowing. L3-4: There is a minimal disc bulge without significant central canal or neuroforaminal narrowing. L4-5: There is a mild broad-based disc bulge with mild ligamentum flavum and facet hypertrophy. No significant central canal or neuroforaminal narrowing. L5-S1: No significant disc bulge. No significant central canal narrowing. No significant neural foraminal narrowing. IMPRESSION: 1. No fracture seen. 2. Lumbar degenerative changes as described. ACT 112: Negative or not required by law. The above report was generated using voice recognition software. It may contain grammatical, syntax or spelling errors. Electronically signed by: Conner Love M.D. 05/04/2025 3:16 PM Radiology: reports reviewed, images reviewed and findings discussed with patient Radiology Findings: XRay Report Patient: JUAN DAVID SCHWAB II Admit Date: 05/02/25 MR#: [id number] Address1: [address] [place] [address] Acct ID:[id number] Address2: Date: 1975 [facility] Zip: [place] [address] Age: 49 Location: ED Sex: M Room/Bed: Att Phy: Diagnosis: NECK AND LOWER BACK, LEG NUMB, PAIN Karla Phy: PCP,NO Service Date: 05/02/25 Fam Phy: Interpreting Phy: Iraj Martinez MDAdmit Phy: Ordering Phy: Shruthi Street PA-C cc: ~ Clinical history: Pain Technique: 3 views of the lumbar spine are submitted for review Findings: The lumbar vertebrae are in normal alignment with no listhesis seen. There are mild T10, T11, and T12 compression fractures, likely old. No definite lumbar spine fracture is identified. There are degenerative spurs throughout the lower thoracic and lumbar spine. No focal osseous lesion is seen. The bowel gas pattern appears unremarkable. Impression: 1. Mild compression fractures of T10, T11, and T12, likely old 2. Multilevel degenerative disc disease Electronically signed by Iraj Martinez 05-02-2025 6:06 PM Dictated: 05/02/25 1734 Previous Records Review Previous Records: records from referring provider reviewed
[2025-05-05] MEDS: HYDROmorphone INJ 1 MG/ML SYRINGE IV STA (18:31)
[2025-05-05] MEDS: LIDOCAINE 5% 1 PATCH TD STA (18:44)
[2025-05-05] MEDS: GABAPENTIN 300 MG CAP PO SCH (20:38)
[2025-05-06] MEDS: HYDROmorphone INJ 1 MG/ML SYRINGE IV PRN (00:11)
[2025-05-06] MEDS: REMOVE LIDODERM PATCH ONE (06:22)
[2025-05-06 07:04] LABS: Hematocrit (blood only) 42.0 % (42.0-52.0); Hemoglobin 14.2 g/dl (14.0-18.0); Mean Corpuscular Hemoglobin 31.2 pg (25.0-34.0); Mean Corpuscular Volume 92.3 fL (80.0-100.0); Platelet Count 236 K/uL (130-400); RDW Standard Deviation 43.5 fL (36.4-46.3); Red Blood Count 4.55 M/uL (4.70-6.10); White Blood Count 16.36 K/ul (4.8-10.8)
[2025-05-06 07:26] LABS: Anion Gap 7.0 (3-11); Blood Urea Nitrogen 15.0 mg/dl (6-23); Calcium 9.2 mg/dl (8.6-10.3); Carbon Dioxide 29.0 mmol/L (21-32); Chloride 102.0 mmol/L (98-107); Creatinine Clr Calc Pharmacy 86.7 ml/min; Glucose 121.0 mg/dl (70-99(Fasting)); Magnesium 2.1 mg/dl (1.7-2.4); Potassium 4.4 mmol/L (3.5-5.1); Sodium 138.0 mmol/L (136-145)
[2025-05-06] MEDS: SENNA 8.6 MG TAB PO SCH (09:37)
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
--- NOTE | 2025-05-06 17:47 | Magnetic Resonance Report ---
Clinical history: Back pain and right leg weakness Technique: Sagittal and axial T1 and T2-weighted magnetic resonance images were obtained of the thoracic spine without gadolinium contrast Comparison is made to the CT dated 05/14/2022 Findings: There is scoliosis. No listhesis is seen. There are mild old compression fractures of the T8, T10, T11, and T12 vertebral bodies. There is loss of to 20% of the vertebral body height. There is no retropulsion of bone into the spinal canal. No acute fracture is identified. There are several apparent vertebral hemangiomas. There is overall normal bone marrow signal intensity. There is no sign of acute ligamentous injury. There is no definite sign of infection. The spinal cord is of normal signal intensity with no focal lesion seen. No definite soft tissue mass or fluid collection is identified. From T1-2 through T6-7, no disc herniation is seen. There is no spinal stenosis or nerve root compression At T7-8, there is a mild disc bulge without spinal stenosis. There is mild bilateral neural foramen narrowing At T8-9, there is an anterior disc bulge without spinal stenosis. There is mild bilateral neural foramen narrowing At T9-10, no disc herniation is seen. There is no spinal stenosis. There is mild bilateral neural foramen narrowing At T10-11, there is a disc bulge and a central disc protrusion, without clear spinal cord deformity. There is mild bilateral neural foramen narrowing At T11-12, there is an anterior disc bulge without spinal stenosis or nerve root compression Impression: 1. Several old thoracic compression fractures 2. No sign of acute fracture or ligamentous injury 3. Scoliosis 4. Disc protrusion at T10-11 and disc bulges at other levels, without spinal stenosis or definite nerve root compression Electronically signed by Iraj Martinez 05-06-2025 5:46 PM
[2025-05-07 07:04] LABS: Hematocrit (blood only) 38.8 % (42.0-52.0); Hemoglobin 13.4 g/dl (14.0-18.0); Mean Corpuscular Hemoglobin 31.5 pg (25.0-34.0); Mean Corpuscular Volume 91.3 fL (80.0-100.0); Platelet Count 223 K/uL (130-400); RDW Standard Deviation 43.1 fL (36.4-46.3); Red Blood Count 4.25 M/uL (4.70-6.10); White Blood Count 12.01 K/ul (4.8-10.8)
[2025-05-07 07:19] LABS: Anion Gap 6.0 (3-11); Blood Urea Nitrogen 18.0 mg/dl (6-23); Calcium 8.7 mg/dl (8.6-10.3); Carbon Dioxide 28.0 mmol/L (21-32); Chloride 103.0 mmol/L (98-107); Creatinine Clr Calc Pharmacy 85.7 ml/min; Glucose 118.0 mg/dl (70-99(Fasting)); Magnesium 2.1 mg/dl (1.7-2.4); Potassium 4.6 mmol/L (3.5-5.1); Sodium 137.0 mmol/L (136-145)
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
[2025-05-08 06:11] LABS: Hematocrit (blood only) 39.1 % (42.0-52.0); Hemoglobin 12.9 g/dl (14.0-18.0); Mean Corpuscular Hemoglobin 30.6 pg (25.0-34.0); Mean Corpuscular Volume 92.7 fL (80.0-100.0); Platelet Count 223 K/uL (130-400); RDW Standard Deviation 43.8 fL (36.4-46.3); Red Blood Count 4.22 M/uL (4.70-6.10); White Blood Count 10.91 K/ul (4.8-10.8)
[2025-05-08 06:38] LABS: Anion Gap 5.0 (3-11); Blood Urea Nitrogen 17.0 mg/dl (6-23); Calcium 8.9 mg/dl (8.6-10.3); Carbon Dioxide 30.0 mmol/L (21-32); Chloride 101.0 mmol/L (98-107); Creatinine Clr Calc Pharmacy 81.8 ml/min; Glucose 118.0 mg/dl (70-99(Fasting)); Magnesium 2.2 mg/dl (1.7-2.4); Potassium 4.5 mmol/L (3.5-5.1); Sodium 136.0 mmol/L (136-145)
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
[2025-05-08] MEDS: HYDROmorphone INJ 1 MG/ML SYRINGE IV STA (15:39)
--- NOTE | 2025-05-08 16:03 | Magnetic Resonance Report ---
Exam: MRI pelvis without contrast. Reason for exam: Severe right hip pain radiating down the right leg. Previous studies: None FINDINGS: The obtained study is severely limited due to and largely nondiagnostic. Due to the patient's inability to assume correct scanning position secondary to the severe pain. The limited findings to reveal small hip joint effusions. IMPRESSION: Nondiagnostic study. Patient unable to maintain correct scanning position. Repeat study could be attempted with patient sedation. Radioisotope bone scan might also be considered. Electronically signed by Conner Geller 05-08-2025 4:02 PM
[2025-05-08] MEDS: GABAPENTIN 300 MG CAP PO ONE (17:02)
[2025-05-09 08:10] LABS: Hematocrit (blood only) 41.2 % (42.0-52.0); Hemoglobin 13.6 g/dl (14.0-18.0); Mean Corpuscular Hemoglobin 30.6 pg (25.0-34.0); Mean Corpuscular Volume 92.6 fL (80.0-100.0); Platelet Count 248 K/uL (130-400); RDW Standard Deviation 43.9 fL (36.4-46.3); Red Blood Count 4.45 M/uL (4.70-6.10); White Blood Count 12.20 K/ul (4.8-10.8)
[2025-05-09 08:22] LABS: Anion Gap 5.0 (3-11); Blood Urea Nitrogen 18.0 mg/dl (6-23); Calcium 8.8 mg/dl (8.6-10.3); Carbon Dioxide 30.0 mmol/L (21-32); Chloride 100.0 mmol/L (98-107); Creatinine Clr Calc Pharmacy 82.7 ml/min; Glucose 116.0 mg/dl (70-99(Fasting)); Magnesium 2.2 mg/dl (1.7-2.4); Potassium 4.1 mmol/L (3.5-5.1); Sodium 135.0 mmol/L (136-145)
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
--- NOTE | 2025-05-09 20:28 | CT Scan Report ---
Exam(s): CT PELVIS Without Contrast EXAM: CT Pelvis Without Intravenous Contrast CLINICAL HISTORY: Reason for exam: R lower back, anterior pelvic pain. TECHNIQUE: Axial computed tomography images of the pelvis without intravenous contrast. CTDI is 21.85 mGy and DLP is 588.31 mGy-cm. Automated exposure control was utilized for the study. A dose lowering technique was utilized adhering to the principles of ALARA. COMPARISON: No relevant prior studies available. FINDINGS: Bones/joints: No acute fracture. No dislocation. Soft tissues: Unremarkable. IMPRESSION: No acute osseous findings. Electronically signed by: Alexander Benson M.D. 05/09/25 20:27 PM
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
[2025-05-11] MEDS: GABAPENTIN 300 MG CAP PO SCH (08:45)
[2025-05-11] MEDS: BACLOFEN 10 MG TAB PO SCH (08:45)
[2025-05-12 07:48] VITALS: BP 159/86; PULSE 67; RESP 16; TEMP 97.7; O2SAT 100
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
== END 2025-05-12 13:30 | disposition home or self-care (01) | DRG 552 ==
LOC: ED 13:21 → 3E 13:21 → SUATTDRO 16:34 → 3E 17:34 → SUATTDRO 05-06 16:32

== ENCOUNTER 2025-10-08 17:58 | Observation (INO) ==
--- NOTE | 2025-10-08 18:09 | Emergency Department Note ---
Impression & Plan Lumbar radiculopathy, Lumbar back pain ED Provider Note NAME: JUAN DAVID CHAUDHARY II AGE: 50 SEX: M : 1975 ARRIVES VIA: Walk-In INFORMANT: Patient, ED PROVIDER(S): Dusty Mccarty MD CHIEF COMPLAINT: Back pain MEDICAL DECISION MAKING: Patient presents due to concern for back pain. IV was established and blood work was obtained. The patient was ordered morphine 6 mg Toradol 10 mg lidocaine patch methocarbamol 1500 mg p.o. and IV methylprednisolone 125. Patient was reassessed and did not have any significant improvement in symptoms. The patient was ordered IV Dilaudid 1 mg. Patient's blood work is reassuring with a normal white count mild anemia hemoglobin 13.7 with a normal platelet count. Kidney function is unremarkable. Postoperative reassessment the patient was still having pain. I did inform the patient that he did have some degenerative changes but were awaiting formal report. The patient may have some associated constipation but patient states that he has no difficulty using the bathroom. Patient is able to urinate on his own at the bedside. No acute concerns for cauda equina at this time. Given the patient's continued pain medication needs I did speak the on-call hospital service Dr. Hu and the patient was admitted to the medicine service. Patient was ordered IV fentanyl 50 mcg. Discussion w/ other healthcare providers: Dr. Eduardo inpatient medicine service Prior /Outside records reviewed: None Differential diagnosis: Musculoskeletal, disc herniation, fracture, sprain, strain, cord compression, discitis, sciatica, cauda equina, infection, renal colic, as well as other pathologies were considered. Diagnostics, as interpreted by me: ECG: None Cardiac monitoring: An order was placed for continuous cardiac monitoring. The monitor shows a rate of 65 with sinus rhythm. Patient was placed on pulse oximetry Medical decision rules: None Imaging studies: I informally interpreted the patient's lumbar spine x-ray which does show degenerative disc disease with formal report to follow. HPI: Patient presents due to concern for midline and right sided lower back pain. 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 Patient states that he did fall to the ground. He did not fall on his back. Patient states that this occurred earlier today and that he was laying in bed but had prolonged symptoms. Patient does state that he feels as though he has some numbness in the right leg. No bowel or bladder incontinence or retention. No saddle anesthesia. Patient denies any head strike or LOC. Patient reports that he was admitted here months ago. He states that he has also undergone injections into the back. He reports he did not take anything prior to arrival. PAST MEDICAL HISTORY: See Below PAST SURGICAL HISTORY: See Below SOCIAL HISTORY: See Below HOME MEDICATIONS: See Below ALLERGIES: See Below VITALS: See Below PHYSICAL EXAMINATION: GENERAL: NAD, non-toxic. EYE EXAM: Normal conjunctiva. PERRL, no anisocoria and EOM's grossly intact w/o pain. OROPHARYNX: Moist mucus membranes, grossly normal dentition. NECK: Trachea midline, no stridor. Supple, no nuchal rigidity, no adenopathy, non-tender. No signs of meningismus. FROM of the neck with good chin to chest and neck extension. LUNGS: Clear to auscultation. Normal chest wall mechanics. HEART: NSR, no MRG. ABDOMEN: Abdomen soft, non-tender, no masses, no rebound or guarding. BACK: No CVA TTP. Midline lower lumbar and right sided paraspinal pain. SKIN: No rashes and no bruising. UPPER EXTREMITIES: Upper extremities are grossly normal. LOWER EXTREMITIES: Grossly normal, no edema. NEURO EXAM: Awake and alert, follows commands, no obvious facial asymmetry, normal speech, moves all 4 extremities. Decreased sensation to the right lower extremity. No saddle anesthesia. Past Med/Surg History Problem List Right leg pain Ambulatory dysfunction Myofascial pain syndrome of lumbar spine Lumbar radiculopathy (Acute) Lumbar back pain (Acute) Arthralgia of back (Acute) Radicular pain in left arm (Acute) Shoulder pain, left (Acute) Strain of latissimus dorsi muscle (Acute) Medical History No chronic diseases present Surgical History No significant past surgical history Social History Smoking Status: Current some day smoker Tobacco Type: Cigarettes Second Hand Exposure: No; Do You Dip or Chew Tobacco: No; Tobacco Cessation Education Requested by Patient: No Hx Alcohol Use: Yes Alcohol type: beer Alcohol Intake Frequency: 2-4 x/Month Hx Substance Use: Yes Last Used Substance Other:: Last weekend 10/02/25 Preferred Language: Belarusian Communication Ability: Effective Net Making Supervisor Required: No Beliefs That Will Affect Care: None marital status: Single Current Living Situation: Significant Other Current Living Situation Comment: Lives with girlfriend current occupational status: employed Other Information That Helps Us Care for You: No Feels Safe at Home: Yes Safety Concerns: Feels Safe At This Time Assistive Devices: None Allergies Allergies Allergy/AdvReac Type Severity Reaction Status Date / Time No Known Allergies Allergy Unknown Verified 06/17/25 10:31 Home Meds Home Medications Medication Instructions Recorded Confirmed baclofen 10 mg tablet 10 mg PO TID PRN Spasms 10/08/25 10/08/25 Previous Rx's Medication Instructions Recorded duloxetine 60 mg capsule,delayed 60 mg PO QAM #30 caps 05/12/25 release gabapentin 300 mg capsule 300 mg PO TID #90 caps 05/12/25 hydrocodone 5 mg-acetaminophen 325 1 tab PO Q6H PRN pain #30 tabs 05/12/25 mg tablet Results & Data (ED) Vital Signs Vital Signs - 24 hr 10/08/25 18:00 10/08/25 18:51 10/08/25 18:51 Temperature 36.4 C L Temperature Source Temporal Artery Scan Pulse Rate 80 Pulse Rate [Finger] 58 L Respiratory Rate 18 18 Respiratory Effort / Characteristics Non-Labored Spontaneous Respiratory Depth Normal Respiratory Pattern Blood Pressure 155/95 H Blood Pressure [Left Arm] 121/81 Blood Pressure Mean 115 Blood Pressure Mean [Left Arm] 94 Pulse Oximetry 99 100 100 Oxygen Delivery Method Room Air Room Air Room Air Sepsis Recent Fever Within 48 Hours No Sepsis New/Unexplained Change in Mental Status No Sepsis Action Taken by Nursing No Action Required 10/08/25 20:00 10/08/25 20:50 Temperature Temperature Source Pulse Rate Pulse Rate [Finger] 61 59 L Respiratory Rate 20 Respiratory Effort / Characteristics Non-Labored Respiratory Depth Respiratory Pattern Regular Blood Pressure Blood Pressure [Left Arm] 153/95 H Blood Pressure Mean Blood Pressure Mean [Left Arm] 114 Pulse Oximetry 100 99 Oxygen Delivery Method Room Air Room Air Sepsis Recent Fever Within 48 Hours Sepsis New/Unexplained Change in Mental Status Sepsis Action Taken by Detention Medications Current Medication List: was personally reviewed by me Laboratory Data Attestation: I reviewed the patient's lab results. 10/09/25 06:15 10/08/25 18:35 Lab Results 10/08/25 Range/Units 18:35 WBC 9.21 (4.8-10.8) K/ul RBC 4.55 L (4.70-6.10) M/uL Hgb 13.7 L (14.0-18.0) g/dL Hct 41.0 L (42.0-52.0) % MCV 90.1 (80.0-100.0) fL MCH 30.1 (25.0-34.0) pg MCHC 33.4 (32.0-36.0) g/dL RDW Std Deviation 44.2 (36.4-46.3) fL RDW Coeff of Zeus 13.4 (11.5-14.5) % Plt Count 305 (130-400) K/uL MPV 9.8 (9.4-12.4) fL Immature Gran % (Auto) 0.4 % Neut % (Auto) 53.2 % Lymph % (Auto) 34.7 % [place] % (Auto) 9.8 % Eos % (Auto) 1.1 % Baso % (Auto) 0.8 % Neut # (Auto) 4.90 (1.40-6.50) K/uL Lymph # (Auto) 3.20 (1.20-3.40) K/uL [place] # (Auto) 0.90 H (0.11-0.59) K/uL Eos # (Auto) 0.10 (0.00-0.50) K/uL Baso # (Auto) 0.07 (0.00-0.20) K/uL Immature Gran # (Auto) 0.04 (0.01-0.20) K/uL Sodium 137 (136-145) mmol/L Potassium 4.5 (3.5-5.1) mmol/L Chloride 104 (98-107) mmol/L Carbon Dioxide 27 (21-32) mmol/L Anion Gap 6 (3-11) BUN 16 (6-23) mg/dl Creatinine 0.90 (0.6-1.4) mg/dl Est Cr Clr Drug Dosing 88.7 ml/min eGFR 103.40 BUN/Creatinine Ratio 17.8 (10-20) Glucose 104 H (70-99(Fasting)) mg/dl Calcium 9.6 (8.6-10.3) mg/dl Administered Medications Hydrocodone Bitart/Acetaminophen (Hydrocodone/Acetamophen 5/325mg Tab) 1 tab PO Q6H PRN PRN Reason: pain Stop: 10/23/25 00:55 Last Admin: 10/09/25 08:50 Dose: 1 tab Documented By: Admin: 10/09/25 01:34 Dose: 1 tab Documented By: [email or web address] Baclofen (Baclofen 10 Mg Tab) 10 mg PO TID PRN PRN Reason: Spasms Stop: 11/08/25 00:55 Last Admin: 10/09/25 05:28 Dose: 10 mg Documented By: marlyn Docusate Sodium (Docusate Sodium 100 Mg Cap) 100 mg PO BID [facility] Stop: 11/08/25 00:55 Last Admin: 10/09/25 08:51 Dose: 100 mg Documented By: Admin: 10/09/25 01:34 Dose: 100 mg Documented By: [email or web address] Duloxetine HCl (Duloxetine Hcl 60 Mg Cap) 60 mg PO QAM [facility] Stop: 11/08/25 08:59 Last Admin: 10/09/25 08:51 Dose: 60 mg Documented By: JEFFREY Gabapentin (Gabapentin 300 Mg Cap) 300 mg PO TID [facility] Stop: 11/08/25 08:59 Last Admin: 10/09/25 08:51 Dose: 300 mg Documented By: JEFFREY Heparin Sodium (Porcine) (Heparin Sod 5,000 Unit/0.5 Ml Vial) 5,000 units SQ Q12 [facility] Stop: 11/08/25 08:59 Last Admin: 10/09/25 08:51 Dose: 5,000 units Documented By: JEFFREY Hydromorphone HCl (Hydromorphone Inj 1 Mg/Ml Syringe) 1 mg IV Q4H PRN PRN Reason: Mod-Sev Pain (Scale 4-10) Stop: 10/23/25 00:55 Last Admin: 10/09/25 07:31 Dose: 1 mg Documented By: Admin: 10/09/25 03:30 Dose: 1 mg Documented By: [email or web address] Methylprednisolone 40 mg/ (Syringe) 0.64 mls @ 1.5 mls/min IV Q12H JON Stop: 11/08/25 05:59 Last Admin: 10/09/25 05:31 Dose: 1.5 mls/min Documented By: [email or web address] Discontinued Medications Fentanyl Citrate (Fentanyl Citrate Pf 100 Mcg/2 Ml Vial) 50 mcg IV NOW STA Stop: 10/08/25 20:55 Last Admin: 10/08/25 21:04 Dose: 50 mcg Documented By: [email or web address] Hydromorphone HCl (Hydromorphone Inj 1 Mg/Ml Syringe) 1 mg IV NOW STA Stop: 10/08/25 19:56 Last Admin: 10/08/25 20:01 Dose: 1 mg Documented By: [email or web address] Hydromorphone HCl (Hydromorphone Inj 0.5 Mg/0.5 Ml Syr) 0.5 mg IV NOW STA Stop: 10/08/25 23:30 Last Admin: 10/08/25 23:47 Dose: 0.5 mg Documented By: KALIA Ketorolac Tromethamine (Ketorolac Tromethamine 15 Mg/Ml Vial) 10 mg IV ONE STA Stop: 10/08/25 18:20 Last Admin: 10/08/25 18:42 Dose: 10 mg Documented By: [id number] Lidocaine (Lidocaine 5% 1 Patch) 1 patch TD NOW STA Stop: 10/08/25 18:20 Last Admin: 10/08/25 18:41 Dose: 1 patch Documented By: [id number] Methocarbamol (Methocarbamol 500 Mg Tablet) 1,500 mg PO NOW STA Stop: 10/08/25 18:20 Last Admin: 10/08/25 18:41 Dose: 1,500 mg Documented By: [id number] Methylprednisolone (Methylprednisolone 125 Mg/2 Ml Vial) 125 mg IV NOW STA Stop: 10/08/25 18:20 Last Admin: 10/08/25 18:42 Dose: 125 mg Documented By: [id number] Miscellaneous (Remove Lidoderm Patch) 1 each N/A DAILY@2100 [facility] Stop: 11/07/25 20:59 Last Admin: 10/08/25 20:09 Dose: Not Given Documented By: [email or web address] Miscellaneous (Remove Lidoderm Patch) 1 each N/A ONE ONE Stop: 10/09/25 06:01 Last Admin: 10/09/25 05:31 Dose: 1 each Documented By: [email or web address] Morphine Sulfate (Morphine Sulfate 4 Mg/Ml 1 Ml Carp\Vial) 6 mg IV NOW STA Stop: 10/08/25 18:20 Last Admin: 10/08/25 18:42 Dose: 6 mg Documented By: [id number] Imaging Data Radiologist's Impression: Lumbar Spine X-Ray 10/08/25 18:19 Exam(s): XR L SPINE, 2-3 views EXAM: XR Lumbosacral Spine, 2 or 3 Views CLINICAL HISTORY: Reason for exam: R sided sciatica, LBP. TECHNIQUE: Frontal and lateral views of the lumbar spine and sacrum. COMPARISON: No relevant prior studies available. FINDINGS: Vertebrae: There also appears to be some diffuse degenerative arthropathy of the facet joints. No fracture. No misalignment. Sacrum/coccyx: Unremarkable as visualized. No acute fracture. Disc spaces: Multilevel moderately advanced degenerative disc disease with spur formation. Soft tissues: Unremarkable. IMPRESSION: No acute findings in the lumbar spine. Electronically signed by: Wil Dutta MD 10/08/25 23:20 PM Discharge Plan Visit Data Chief Complaint: Back Injury/Pain Stated Complaint: BACK PAIN INTO RT SIDE/SLIGHTLY ON LT ED Provider: Dusty Mccarty Discharge Problem: Lumbar radiculopathy, Lumbar back pain Patient Disposition: Admitted As Inpatient Condition: Good Discharge Instructions Interventions: ED Discharge Assessment Last Done: 10/09/25 00:25
[2025-10-08] MEDS: METHOCARBAMOL 500 MG TABLET PO STA (18:41)
[2025-10-08] MEDS: LIDOCAINE 5% 1 PATCH TD STA (18:41)
[2025-10-08] MEDS: KETOROLAC TROMETHAMINE 15 MG/ML VIAL IV STA (18:42)
[2025-10-08] MEDS: MoRPHine SULFATE 4 MG/ML 1 ML CARP\\VIAL IV STA (18:42)
[2025-10-08 18:54] LABS: Hematocrit (blood only) 41.0 % (42.0-52.0); Hemoglobin 13.7 g/dL (14.0-18.0); Immature Granulocytes # (auto) 0.04 K/uL (0.01-0.20); Immature Granulocytes % (auto) 0.4 %; Mean Corpuscular Hemoglobin 30.1 pg (25.0-34.0); Mean Corpuscular Volume 90.1 fL (80.0-100.0); Platelet Count 305 K/uL (130-400); RDW Standard Deviation 44.2 fL (36.4-46.3); Red Blood Count 4.55 M/uL (4.70-6.10); White Blood Count 9.21 K/ul (4.8-10.8)
[2025-10-08 19:11] LABS: Anion Gap 6.0 (3-11); Blood Urea Nitrogen 16.0 mg/dl (6-23); Calcium 9.6 mg/dl (8.6-10.3); Carbon Dioxide 27.0 mmol/L (21-32); Chloride 104.0 mmol/L (98-107); Creatinine Clr Calc Pharmacy 88.7 ml/min; Glucose 104.0 mg/dl (70-99(Fasting)); Potassium 4.5 mmol/L (3.5-5.1); Sodium 137.0 mmol/L (136-145)
[2025-10-08] MEDS: HYDROmorphone INJ 1 MG/ML SYRINGE IV STA (20:01)
[2025-10-08] MEDS: REMOVE LIDODERM PATCH SCH (20:09)
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
--- NOTE | 2025-10-08 23:20 | XRay Report ---
Exam(s): XR L SPINE, 2-3 views EXAM: XR Lumbosacral Spine, 2 or 3 Views CLINICAL HISTORY: Reason for exam: R sided sciatica, LBP. TECHNIQUE: Frontal and lateral views of the lumbar spine and sacrum. COMPARISON: No relevant prior studies available. FINDINGS: Vertebrae: There also appears to be some diffuse degenerative arthropathy of the facet joints. No fracture. No misalignment. Sacrum/coccyx: Unremarkable as visualized. No acute fracture. Disc spaces: Multilevel moderately advanced degenerative disc disease with spur formation. Soft tissues: Unremarkable. IMPRESSION: No acute findings in the lumbar spine. Electronically signed by: Wil Dutta MD 10/08/25 23:20 PM
[2025-10-08] MEDS: HYDROmorphone INJ 0.5 MG/0.5 ML SYR IV STA (23:47)
[2025-10-09] MEDS ORDERED: ONDANSETRON INJ 2 MG/ML 2 ML VIAL IV PRN (00:56)
[2025-10-09] MEDS ORDERED: ALUMINUM/MAGNESIUM/SIMETH (MAALOX MAX) 30 ML UDC PO PRN (00:56)
[2025-10-09] MEDS ORDERED: ACETAMINOPHEN 325 MG TAB PO PRN (00:56)
[2025-10-09] MEDS ORDERED: POLYETHYLENE (MIRALAX) 17 GM PACK PO PRN (00:56)
[2025-10-09] MEDS: HYDROCODONE/ACETAMOPHEN 5/325MG TAB PO PRN (01:34)
[2025-10-09] MEDS: DOCUSATE SODIUM 100 MG CAP PO SCH (01:34)
[2025-10-09] MEDS: HYDROmorphone INJ 1 MG/ML SYRINGE IV PRN (03:30)
[2025-10-09] MEDS: BACLOFEN 10 MG TAB PO PRN (05:28)
[2025-10-09] MEDS: REMOVE LIDODERM PATCH ONE (05:31)
[2025-10-09 06:58] LABS: Hematocrit (blood only) 40.9 % (42.0-52.0); Hemoglobin 14.1 g/dL (14.0-18.0); Mean Corpuscular Hemoglobin 30.9 pg (25.0-34.0); Mean Corpuscular Volume 89.7 fL (80.0-100.0); Platelet Count 295 K/uL (130-400); RDW Standard Deviation 41.9 fL (36.4-46.3); Red Blood Count 4.56 M/uL (4.70-6.10); White Blood Count 12.90 K/ul (4.8-10.8)
[2025-10-09] MEDS: GABAPENTIN 300 MG CAP PO SCH (08:51)
[2025-10-09] MEDS: HEPARIN SOD 5,000 UNIT/0.5 ML VIAL SQ SCH (08:51)
--- NOTE | 2025-10-09 10:03 | Orthopedic Consultation ---
Date of Service October 09, 2025 Assessment & Plan (1) Lumbar back pain: (2) Right leg pain: Plan 50-year-old male with chronic low back pain, chronic right lower extremity pain. The patient has been admitted and seen in the emergency department multiple times for the same complaint. He has been evaluated by spine surgery in the past by Dr. Hudson and his team however this time consult was placed to me. Symptoms seem to be consistent with his prior episodes, he reports that he has exacerbations of the right lower extremity pain every so often and does have home medication. Prior MRI does not show any significant central canal foraminal stenosis or neurologic compression in the lumbar spine or the thoracic spine. MRI today shows mild disc bulge at L4-5, no significant stenosis requiring urgent decompression. Agree with steroids, mobilize with PT, consider increasing gabapentin and contacting pain management as he is established with them to see if an injection to L5 nerve may be of benefit. History of Present Illness Reason for Consultation: Right leg pain Requesting Physician: . Attending Physician: Marcello Mooney MD Patient is a 50-year-old gentleman with history of chronic right lower extremity pain. He has been seen here at [facility] multiple times for this same issue. On his last admission in April of this year he was evaluated by Dr. Hudson's team from spine surgery, no surgical intervention was recommended as there was only mild foraminal stenosis in his lumbar spine MRI, no significant findings in the thoracic MRI. He has gone to pain management as an outpatient, he has had an epidural injection which also did not provide any significant relief of the right lower extremity pain. He describes pain in a nondermatomal pattern down almost the entire right lower extremity with accompanying paresthesias. He reports pain with weightbearing on the right leg, no issue with bowel or bladder control. Also reports lumbar back pain which is chronic. He relates [place], he had increase in low back and right leg pain at that point. He states he ran out of his pain medication at home and presented to the emergency department. Only imaging performed in the emergency department was an x-ray with no significant findings other than mild degenerative changes. This morning he is neurologically intact however reports diffuse right leg pain, limited participation in physical exam exacerbated by pain in the right lower extremity. Allergies Allergy/AdvReac Type Severity Reaction Status Date / Time No Known Allergies Allergy Unknown Verified 06/17/25 10:31 Home Medications Medication Instructions Recorded Confirmed Type duloxetine 60 mg capsule,delayed 60 mg PO QAM #30 caps 05/12/25 10/08/25 Rx release gabapentin 300 mg capsule 300 mg PO TID #90 caps 05/12/25 10/08/25 Rx hydrocodone 5 mg-acetaminophen 325 1 tab PO Q6H PRN pain #30 tabs 05/12/25 1 12/09/24 Rx mg tablet baclofen 10 mg tablet 10 mg PO TID PRN Spasms 10/08/25 10/08/25 History Past Med/Surg History Problem List Right leg pain Ambulatory dysfunction Myofascial pain syndrome of lumbar spine Lumbar radiculopathy (Acute) Lumbar back pain (Acute) Arthralgia of back (Acute) Radicular pain in left arm (Acute) Shoulder pain, left (Acute) Strain of latissimus dorsi muscle (Acute) Medical History No chronic diseases present Surgical History No significant past surgical history Social History Smoking Status: Current some day smoker Tobacco Type: Cigarettes Second Hand Exposure: No; Do You Dip or Chew Tobacco: No; Tobacco Cessation Education Requested by Patient: No Hx Alcohol Use: Yes Alcohol type: beer Alcohol Intake Frequency: 2-4 x/Month Hx Substance Use: Yes Last Used Substance Other:: Last weekend 10/02/25 Preferred Language: Cymro Communication Ability: Effective Yarn Spooler Required: No Beliefs That Will Affect Care: None marital status: Single Current Living Situation: Significant Other Current Living Situation Comment: Lives with girlfriend current occupational status: employed Other Information That Helps Us Care for You: No Feels Safe at Home: Yes Safety Concerns: Feels Safe At This Time Assistive Devices: None Review of Systems All systems reviewed & are unremarkable except as noted in HPI & below. Physical Exam Constitutional: Well developed, appears stated age, laying in bed in no distress Psych: patient is coherent and answers questions appropriately, normal affect Eye: Normal gaze, no redness to sclera, pupils round and equal Pulm: Normal respiratory effort, no wheezing Cardiovascular: no significant peripheral edema, palpable DP/PT pulses Skin shows no rashes, lesions No midline or paraspinal tenderness with palpation over the lumbar spine, no stepoffs Motor strength is 5/5 in left hip flexors, quadriceps, tibialis anterior, extensor hallucis longus, and gastroc/soleus complex 3-4 out of 5 strength in all of the same muscle groups right lower extremity with poor effort on exam, possibly limited by pain Sensation intact to light touch in the L2-S1 dermatomes on the left Reports paresthesias in a nondermatomal pattern down the lateral aspect of the right leg, as well as medial knee down to the medial ankle roughly correlating with L5, some L4 as well as some diffuse paresthesia in toes Diminished reflexes at the achilles and patella tendons on right No ankle clonus Results & Data Results & Data Laboratory Results . Diagnostic Findings AP and lateral views of the lumbar spine were available for review today and interpreted personally. Mild to moderate disc degeneration at L5 5. There is no spondylolisthesis throughout the lumbar spine. There is straightening of the usual lumbar lordosis. No significant coronal deformity. Lower thoracic spine is visualized with mild chronic compression deformities at T11 and T12. MRI thoracic spine from 05/06/2025 available for review today and interpreted personally. Old healed compression deformity at T11-T12 with minor kyphosis, no retropulsion. There is minor disc degeneration throughout the thoracic spine however no significant central canal stenosis, no evidence of cord compression. Cord signal is uniform throughout. MRI of the lumbar spine was available for review today from 05/06/2025. Reversal of the usual lumbar lordosis with straightening of the lumbar spine. There is moderate degree of disc degeneration at L4-5. There is no severe neurologic compression, no severe foraminal stenosis. MRI lumbar spine from today reviewed and interpreted personally, mild worsening of his L4-5 disc bulge but no severe stenosis at this level, contact of the L5 nerves bilaterally but no severe compression. No significant foraminal stenosis, remainder of levels unremarkable. PG Care Time/CCT Total # of Minutes Spent Total Time Spent with Patient: Total time spent is greater than 50% in coordination of care (as documented) at patient's floor/unit and/or counseling patient: Coding Level of Care Code 57458 IN/OBS CONSULT LVL 5,80M Diagnoses Lumbar back pain M54.50 Right leg pain M79.604
--- NOTE | 2025-10-09 10:36 | Magnetic Resonance Report ---
Clinical History: Lower back pain Technique: Sagittal and axial T1 and T2-weighted magnetic resonance images were obtained of the lumbar spine without gadolinium contrast. Comparison is made to the prior MRI dated 05/04/2025 Findings: The lumbar vertebrae are in normal alignment. There are several apparent vertebral hemangiomas with characteristic increased T1 and increased T2 signal intensity. No other focal osseous lesion is evident. No fracture is identified. There is no definite sign of infection. There is no sign of acute ligamentous injury. The conus medullaris appears normal, terminating at the level of T12. At L1-L2, there is a disc bulge with mild right neural foramen narrowing. There is no spinal stenosis or clear nerve root compression. At L2-L3, there is a mild disc bulge with mild left neural foramen narrowing. There is no spinal stenosis or clear nerve root compression. At L3-L4, there is mild spinal stenosis due to a worsened disc bulge. There is no visible compression of the traversing nerve roots. There is bilateral neural foramen narrowing that may affect the exiting L3 nerve roots At L4-L5, there is spinal stenosis due to a slightly worsened broad-based central disc protrusion as well as a disc bulge. The traversing L5 nerve roots are contacted. There is bilateral neural foramen narrowing that may affect the exiting L4 nerve roots At L5-S1, there is a mild disc bulge without spinal stenosis or nerve root compression. Impression: 1. Spinal stenosis at L4-5 with a disc protrusion that contacts the traversing L5 nerve roots 2. Mild spinal stenosis at L3-4, without compression of the traversing nerve roots 3. Bilateral neural foramen narrowing at L3-4 and L4-5, which may affect the exiting nerve roots ACT 112: Positive. There are findings on this exam that require communication between the performing entity and the patient following Patient Test Result Information Act ([place] ACT 112) guidelines. Electronically signed by Iraj Martinez 10-09-2025 10:36 AM
[2025-10-09 14:40] VITALS: RESP 18; O2SAT 97
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
[2025-10-10 08:19] VITALS: BP 121/77; PULSE 59; TEMP 97.3
--- NOTE | 2025-10-10 09:56 | Pain Management Consultation ---
Date of Consultation October 10, 2025 Assessment & Plan (1) Myofascial pain syndrome of lumbar spine: (2) Lumbar radiculopathy: (3) Ambulatory dysfunction: Plan Acute pain does seem like acute lumbar muscle strain. Recommend continuation of current medication regimen including gabapentin 300 mg 3 times daily, baclofen 10 mg 3 times daily, hydrocodone 5/325 mg every 6 hours, and as needed IV Dilaudid. Continue IV methylprednisolone. Recommend that IV Dilaudid be used sparingly. I did add on a lidocaine patch. Nothing to offer interventionally at this time. Will sign off on the patient. Please contact with any questions or concerns. History of Present Illness Reason for Consultation: Back pain Attending Physician: Marcello Mooney MD History of Present Illness This is a 50-year-old male that has been admitted to the [facility] for acute low back pain. He states that the pain started a week or 2 ago when he was picking something off the ground and felt a sudden pain along the right low back and a numbness and tingling that radiates along the anterior aspect of the right leg to the foot. At home he was resting and taking oral baclofen, hydrocodone, duloxetine, gabapentin. Pain was not improving so he came to the emergency department for further treatment. Sharp spasming pain along the right low back numbness tingling going down the right leg. He denies any weakness into the right leg. He is reporting significant limitation to performing his daily activities due to the discomfort. Pain is currently rated 4/10. He has been previously seen in consultation for the same pain in April which did not respond to a right L4-L5 transforaminal epidural steroid injection or lumbar trigger point injections. Dr. Vaca did evaluate him yesterday and there is nothing requiring urgent decompression. Patient denies any bowel/bladder incontinence, saddle anesthesia, foot drop, leg weakness, falls. Since his admission in April, his PCP has been weaning the hydrocodone that he is prescribing the patient. Patient states that he is typically taking the hydrocodone typically twice daily and has run out of hydrocodone for the month as he was in increased pain and taking it 4 times a day over the last week or 2. I did explain to the patient that it is not recommended to continue long-term opioids and that they should be reserved for acute pain only. Case discussed with Dr. Shanthi Infante Allergies Allergy/AdvReac Type Severity Reaction Status Date / Time No Known Allergies Allergy Unknown Verified 06/17/25 10:31 Home Medications Medication Instructions Recorded Confirmed Type duloxetine 60 mg capsule,delayed 60 mg PO QAM #30 caps 05/12/25 10/08/25 Rx release gabapentin 300 mg capsule 300 mg PO TID #90 caps 05/12/25 10/08/25 Rx hydrocodone 5 mg-acetaminophen 325 1 tab PO Q6H PRN pain #30 tabs 05/12/25 10/08/25 Rx mg tablet baclofen 10 mg tablet 10 mg PO TID PRN Spasms 10/08/25 10/08/25 History Patient History Medical History No chronic diseases present Surgical History No significant past surgical history Social History Smoking Status: Current some day smoker Tobacco Type: Cigarettes Second Hand Exposure: No; Do You Dip or Chew Tobacco: No; Tobacco Cessation Education Requested by Patient: No Hx Alcohol Use: Yes Alcohol type: beer Alcohol Intake Frequency: 2-4 x/Month Hx Substance Use: Yes Last Used Substance Other:: Last weekend 10/02/25 Preferred Language: Luxembourgish Communication Ability: Effective Town Clerk Required: No Beliefs That Will Affect Care: None marital status: Single Current Living Situation: Significant Other Current Living Situation Comment: Lives with girlfriend current occupational status: employed Other Information That Helps Us Care for You: No Feels Safe at Home: Yes Safety Concerns: Feels Safe At This Time Assistive Devices: None Physical Exam Physical Exam: GENERAL: This is a 50-year-old male that does appear in moderate pain with positional changes. Laying supine he does not appear in any significant distress. HEAD/FACE: Normocephalic and atraumatic. EYES: No drainage or conjunctival injection. ENT: Nose without bleeding or discharge. Oral mucosa moist. NECK: Full ROM without apparent pain. No swelling or masses noted. RESPIRATORY: Patient with unlabored breathing. No signs of respiratory distress. CHEST/AXILLA: Chest movement symmetrical. No deformities noted. ABDOMEN/GI: No distension BACK: Normal lumbar lordosis. There is moderate tenderness along the right lumbar paravertebral and quadratus lumborum musculature. No trigger points noted. Moderate tenderness along the right SI joint. No midline or facet joint tenderness. SKIN: [place], warm and dry. No rash noted. MS/EXTREMITY: 5/5 strength of the bilateral lower extremities. Positive straight leg raise on the right, negative on the left. NEURO: Alert and appears oriented. Speech is fluent. Cranial Nerves are grossly intact. PSYCH: Alert, pleasant, affect is calm Results (Pain Clinic) Diagnostic Review MRI Findings: Clinical History: Lower back pain Technique: Sagittal and axial T1 and T2-weighted magnetic resonance images were obtained of the lumbar spine without gadolinium contrast. Comparison is made to the prior MRI dated 05/04/2025 Findings: The lumbar vertebrae are in normal alignment. There are several apparent vertebral hemangiomas with characteristic increased T1 and increased T2 signal intensity. No other focal osseous lesion is evident. No fracture is identified. There is no definite sign of infection. There is no sign of acute ligamentous injury. The conus medullaris appears normal, terminating at the level of T12. At L1-L2, there is a disc bulge with mild right neural foramen narrowing. There is no spinal stenosis or clear nerve root compression. At L2-L3, there is a mild disc bulge with mild left neural foramen narrowing. There is no spinal stenosis or clear nerve root compression. At L3-L4, there is mild spinal stenosis due to a worsened disc bulge. There is no visible compression of the traversing nerve roots. There is bilateral neural foramen narrowing that may affect the exiting L3 nerve roots At L4-L5, there is spinal stenosis due to a slightly worsened broad-based central disc protrusion as well as a disc bulge. The traversing L5 nerve roots are contacted. There is bilateral neural foramen narrowing that may affect the exiting L4 nerve roots At L5-S1, there is a mild disc bulge without spinal stenosis or nerve root compression. Impression: 1. Spinal stenosis at L4-5 with a disc protrusion that contacts the traversing L5 nerve roots 2. Mild spinal stenosis at L3-4, without compression of the traversing nerve roots 3. Bilateral neural foramen narrowing at L3-4 and L4-5, which may affect the exiting nerve roots ACT 112: Positive. There are findings on this exam that require communication between the performing entity and the patient following Patient Test Result Information Act ([place] ACT 112) guidelines. Electronically signed by Iraj Martinez 10-09-2025 10:36 AM
[2025-10-10] MEDS: LIDOCAINE 5% 1 PATCH TD SCH (12:30)
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
[2025-10-10] MEDS ORDERED: REMOVE LIDODERM PATCH SCH (21:00)
== END 2025-10-10 14:41 | disposition home or self-care (01) ==
LOC: ED 17:58 → 3N 17:58